=== PATIENT | male | born 1935 | race Caucasian/White ===

== ENCOUNTER 2021-03-04 07:51 | Emergency (ER) | payer MEDICARE, OTHER, SELFPAY ==
--- NOTE | 2021-03-04 07:59 | DI.CT.S_ITS ---
PROCEDURE: CT HEAD/BRAIN WO CON INDICATIONS: Altered LOC TECHNIQUE: Noncontrast 4.5 mm thick angled axial sections acquired from the foramen magnum to the vertex, with coronal and sagittal reformats. For radiation dose reduction, the following was used: automated exposure control, adjustment of mA and/or kV according to patient size. COMPARISON: None. FINDINGS: Image quality: Excellent. CSF spaces: Basal cisterns are patent. No extra-axial fluid collections. Ventricles and extra-axial CSF spaces are prominent consistent with cerebral atrophy. Brain: No intracranial bleeds or masses. There is cerebral volume loss for age, with resultant ventricular and sulcal prominence. There are periventricular and deep white matter chronic small vessel ischemic changes. There is intracranial internal vascular atherosclerosis. Skull and face: Calvarium and visualized facial bones appear intact, without suspicious lesions. Sinuses: Visualized sinuses and mastoids are clear. IMPRESSION: Findings consistent with microvascular ischemic changes and cerebral volume loss without evidence of an acute transcortical infarction. Dictated by: Hood Castro D.O. on 03/04/2021 at 7:35 Approved by: Hood Castro D.O. on 03/04/2021 at 7:38
--- NOTE | 2021-03-04 08:15 | ED.HA ---
HPI - Headache General Chief Complaint: Headache Stated Complaint: Slurred speech Time Seen by Provider: 03/04/21 07:56 History of Present Illness HPI Narrative: The patient awoke his about 5:00 a.m. this morning, she says his speech was garbled. She had difficulty understanding, but he did ask for a granola bar. She went to get him the granola bar. His generally ambulatory with a walker. He did not get out of bed. He had nasal surgery 2 weeks ago. He has a bandage on his left nose. Upon arrival here, he complains of nasal/sinus pain. His no headache or visual changes. He denies sore throat or dysphagia. He has a trach site open. He apparently had a cardiac arrest in 2011, her rest again at the recovery center. He has no history of or pharyngeal cancer. It sounds as if the trach is due to COPD/respiratory failure. He has no history of CVA. He does have coronary artery disease, diabetes, hypertension, hyperlipidemia, COPD, and hypothyroidism. He has no fever, chills or cough. He denies chest pain or dyspnea. He has no GI complaints. He is oriented, moves all extremities spontaneously. Related Data Allergies Allergy/AdvReac Type Severity Reaction Status Date / Time heparin Allergy Verified 03/04/21 08:34 Review of Systems Review of Systems Narrative: See HPI. ROS is otherwise limited to the patient's limited communication. Patient History Medical History (Updated 03/04/21 @ 09:27 by Lobo Reyes MD) COPD (chronic obstructive pulmonary disease) Coronary artery disease Diabetes Hyperlipidemia Hypertension Exam Initial Vital Signs Initial Vital Signs: Vital Signs Temperature 98.5 F 03/04/21 08:22 Pulse Rate 82 03/04/21 08:22 Respiratory Rate 18 03/04/21 08:22 Blood Pressure 162/89 H 03/04/21 08:22 Pulse Oximetry 97 03/04/21 08:22 Const General: cooperative, No acute distress and anxious Nutritional Appearance: obese HENMT Head: atraumatic Ears: TM's normal bilaterally Nose: nares normal and other (Eschar to the left lateral nose.) Face and sinus: other (No palpable sinus tenderness.) Mouth: oral mucosae normal and mucous membranes abnormal Throat: posterior oropharynx normal Eyes General: appearance normal, both eyes and all related structures Pupils: PERRL EOM: EOM intact bilaterally Neck Neck: full ROM and no meningeal signs Chest Chest: normal inspection of the chest Resp Effort & Inspection: normal respiratory effort Auscultation: clear to auscultation bilaterally Cardio Rate: regular rate Rhythm: regular rhythm Heart Sounds: S1 normal, S2 normal and no murmurs GI Inspection: non-distended and obesity Palpation: soft and No tender Auscultation: normal bowel sounds Back/Spine/Pelvis Back: No back tenderness Skin General: no rashes or lesions noted (Other than the nasal eschar) Neuro General: patient alert, patient oriented x3, no focal motor deficits and CN's II-XI intact bilaterally Sensory Exam: no sensory deficits noted Coordination: [id number] test normal Extrem General: normal to inspection, full ROM and no calf tenderness Course Course Course Narrative: The patient is at neurologic baseline upon arrival. His glucose was not checked until paramedics arrived, he was greater than 100. He had eaten a granola bar at that time. On the evaluation head CT reveals microvascular disease. He has no sinus infection. He has anemia, renal insufficiency, and hyperglycemia, none of these findings are acute. Orders Ordered: ED Orders 03/04/21 07:59 CT head/brain wo con Stat 03/04/21 08:05 Complete Blood Count AUTO DIFF Stat Comprehensive Metabolic Panel Stat 03/04/21 08:28 EKG-12 Lead Stat Discontinued Medications Bacitracin (Bacitracin Oint 0.9 Gm Pckt) 1 applic TOP NOW ONE Stop: 03/04/21 08:28 Last Admin: 03/04/21 08:33 Dose: 1 applic Documented by: Vital Signs Vital signs: Vital Signs - 8 hr 03/04/21 08:22 03/04/21 08:31 Temperature 98.5 F Pulse Rate 82 80 Respiratory Rate 18 18 Blood Pressure 162/89 H Pulse Oximetry 97 96 MDM - Headache Lab Data Result diagrams: 03/04/21 08:00 03/04/21 08:00 Labs: Lab Results 03/04/21 03/04/21 Range/Units 08:00 08:00 WBC 8.7 (4.5-11.0) X10^3/uL RBC 3.79 L (4.5-5.9) X10^6/uL Hgb 11.1 L (13.5-17.5) g/dL Hct 33.8 L (41-53) % MCV 89.2 (80-100) fL MCH 29.3 (26-34) PG MCHC 32.8 (30-36) % RDW 14.2 (11.6-14.8) % Plt Count 283 (150-400) X10^3/uL Neut % (Auto) 76.3 H (50-75) % Lymph % (Auto) 14.1 L (25-40) % [place] % (Auto) 8.0 (3-14) % Eos % (Auto) 1.2 L (2-4) % Baso % (Auto) 0.4 (0-2) % Neut # (Auto) 6600 (6772-1604) /uL Lymph # (Auto) 1200 (2997-6143) /uL [place] # (Auto) 700 (0-900) /uL Eos # (Auto) 100 (0-450) /uL Baso # (Auto) 0 (0-100) /uL Sodium 137 (137-145) mmol/L Potassium 4.3 (3.4-5.1) mmol/L Chloride 97 L (98-107) mmol/L Carbon Dioxide 28 (22-32) mmol/L BUN 28 H (9-20) mg/dL Creatinine 1.72 H (0.66-1.25) mg/dL Estimated GFR 38.1 L (>60) mL/min BUN/Creatinine Ratio 16.3 (6-22) Glucose 247 H (80-110) mg/dL Calcium 9.3 (8.4-10.2) mg/dL Total Bilirubin 0.3 (0.2-1.3) mg/dL AST 28 (17-59) IU/L ALT 28 (<50) IU/L Alkaline Phosphatase 93 (38-126) U/L Total Protein 7.4 (6.3-8.2) g/dL Albumin 4.3 (3.5-5.0) g/dL Globulin 3.1 (1.7-4.1) g/dL Albumin/Globulin Ratio 1.4 (1.0-2.8) Point of Care Testing Glucose POC 257 ECG Data Attestation: I personally reviewed and interpreted this ECG as follows: (Normal sinus rhythm rate 81 beats per minute. Normal intervals. Nonspecific ST T wave changes. QT 4 0 for/QTC 469. ) Discharge Plan Departure Patient Disposition: Home Clinical Impression: Confusion, Anemia, CRI (chronic renal insufficiency), Cerebral microvascular disease Diabetes Qualifiers: Diabetes mellitus type: type 2 Activity Restrictions/Additional Instructions: The brain CT shows microvascular disease, hardening of the arteries. Continue baby aspirin. His glucose is currently little elevated. Low glucose can stimulate the issues that occurred this morning. In his situation that occurred, a glucose should always be checked. Continue current medications. Return here as necessary. Call 911 if concerns like existed this morning happened again.
[2021-03-04 08:21] LABS: Add Manual Diff / Slide Review NO; Basophils Absolute Auto 0 /uL (0-100); Basophils Percent Auto 0.4 % (0-2); Eosinophils Absolute Auto 100 /uL (0-450); Eosinophils Percent Auto 1.2 % (2-4); Hematocrit 33.8 % (41-53); Hemoglobin 11.1 g/dL (13.5-17.5); Lymphocytes Absolute Auto 1200 /uL (1100-4500); Lymphocytes Percent Auto 14.1 % (25-40); Mean Corpuscular HGB Conc 32.8 % (30-36); Mean Corpuscular Hemoglobin 29.3 PG (26-34); Mean Corpuscular Volume 89.2 fL (80-100); Monocytes Absolute Auto 700 /uL (0-900); Neutrophils Absolute Auto 6600 /uL (1500-7000); Neutrophils Percent Auto 76.3 % (50-75); Platelet Count 283 X10^3/uL (150-400); Red Blood Cell Count 3.79 X10^6/uL (4.5-5.9); Red Cell Distribution Width 14.2 % (11.6-14.8); White Blood Cell Count 8.7 X10^3/uL (4.5-11.0)
[2021-03-04 08:22] VITALS: BP 162/89; PULSE 82; RESP 18; TEMP 36.9; O2SAT 97; BMI 39.1
[2021-03-04 08:29] LABS: Alanine Aminotransferase 28 IU/L (<50); Albumin 4.3 g/dL (3.5-5.0); Albumin Globulin Ratio 1.4 (1.0-2.8); Alkaline Phosphatase 93 U/L (38-126); Aspartate Aminotransferase 28 IU/L (17-59); BUN Creatinine Ratio 16.3 (6-22); Bilirubin Total 0.3 mg/dL (0.2-1.3); Blood Urea Nitrogen 28 mg/dL (9-20); Calcium 9.3 mg/dL (8.4-10.2); Carbon Dioxide 28 mmol/L (22-32); Chloride 97 mmol/L (98-107); Estimated Glomerular Filt Rate 38.1 mL/min (>60); Globulin 3.1 g/dL (1.7-4.1); Glucose 247 mg/dL (80-110); HEMOLYSIS < 15 (0-50); Potassium 4.3 mmol/L (3.4-5.1); Sodium 137 mmol/L (137-145); Total Protein 7.4 g/dL (6.3-8.2)
[2021-03-04 08:31] VITALS: PULSE 80; RESP 18; O2SAT 96
[2021-03-04] MEDS: BACITRACIN OINT 0.9 GM PCKT 1 APPLIC TOP (08:33)
[2021-03-04 09:00] VITALS: PULSE 85; RESP 15; O2SAT 98
[2021-03-04 09:30] VITALS: PULSE 69; O2SAT 95
[2021-03-04 09:31] VITALS: BP 179/75; PULSE 69; RESP 16; O2SAT 95
== END 2021-03-04 09:45 | disposition home or self-care (01) ==
PROVIDERS: Emergency Provider Emergency Medicine
DX: N18.9 Chronic kidney disease, unspecified (principal); I67.89 Other cerebrovascular disease; R41.0 Disorientation, unspecified; D64.9 Anemia, unspecified; R07.9 Chest pain, unspecified
CPT/HCPCS: 70450; 80053; 82962; 85025; 93005; 99284